=== PATIENT | male | born 1970 | race Caucasian/White ===

== ENCOUNTER 2022-08-22 14:30 | Outpatient (REF) | payer OTHER, SELFPAY ==
--- NOTE | ~2022-08-22 | US_ITS ---
EXAMINATION: US RETROPERITONEAL LIMITED (RENAL ONLY) CLINICAL INFORMATION: Polycystic kidney disease. COMPARISON: Ultrasound retroperitoneal limited (renal only) 07/14/2019. TECHNIQUE: Real-time imaging of the kidneys. FINDINGS: RIGHT KIDNEY: 15.8 x 7.3 x 7.5 cm (SAG x AP x TRV). The kidney is enlarged and replaced with innumerable cysts consistent with autosomal dominant polycystic kidney disease. In addition to the innumerable cysts, there are multiple echogenic foci. The largest cyst is at the upper pole measuring 5.2 cm. The largest echogenic foci is also in the upper pole measuring 3 mm in size. No hydronephrosis. LEFT KIDNEY: 19.1 x 7.3 x 8.1 cm (SAG x AP x TRV). The kidney is enlarged and replaced with innumerable cysts consistent with autosomal dominant polycystic kidney disease. In addition to the innumerable cysts, there are multiple echogenic foci. The largest cyst is at the upper pole measuring 7.5 cm. The largest echogenic foci is also in the mid kidney measuring 3 mm in size. No hydronephrosis. US/US renal BI IMPRESSION: Enlarged kidneys replaced with innumerable cysts consistent with autosomal dominant polycystic kidney disease. Multiple renal calcifications.
== END 2022-08-22 14:31 | disposition home or self-care (01) ==
LOC: HO.HMGCX 14:30
PROVIDERS: Visit Provider Internal Medicine Hypertension Specialist
DX: Q61.9 Cystic kidney disease, unspecified (principal)
CPT/HCPCS: 76775

== ENCOUNTER 2023-08-04 15:43 | Outpatient (AMB) | payer MEDICAID, SELFPAY ==
--- NOTE | 2023-08-04 15:45 | HO.NEPHOV_ITS ---
HPI HPI Comments History of Present Illness Details 53-year-old man with polycystic kidney d emma is here for annual follow-up Overall he is doing well. No urinary symptoms. No polyuria. No hematuria. No UTI. He had vague right upper quadrant pain which she spontaneously resolved. [facility] Surgical History (Updated 08/04/23 @ 15:59 by Arin Doan MA) Hx of tonsillectomy Social History Alcohol intake: former Comment: OCC Patient Tobacco Use Status: Never used Tobacco Vital Signs 08/04/23 15:48 Height 5 ft 11 in Weight 159 lb BMI 22.2 BP 122/88 Blood Pressure Location Lt brachial Position Sitting Pulse 60 Pulse Source Pulse Oximeter Pulse Oximetry (%) 98 Oxygen Delivery Method Room Air Physical Exam Vital Signs: Last Vital Signs Pulse 60 08/04/23 15:48 BP 122/88 08/04/23 15:48 Pulse Ox 98 08/04/23 15:48 Oxygen Delivery Method Room Air 08/04/23 15:48 BMI result Body Mass Index 22.2 Const General: comfortable Nutritional Appearance: well nourished Orientation/consciousness: patient oriented x3 HEENT Head: No normal to inspection Mouth: moist mucous membranes Neck Neck: Yes supple and Yes no JVD Resp Auscultation: clear to auscultation bilaterally, no rales and rub present Cardio Jugular venous distension: no JVD Palpation: no palpable S3 and no palpable S4 Heart sounds: no rubs GI Palpation (GI): Soft to palpation and nontender Percussion: No Fluid wave present General: Yes no CVA tenderness Back/Spine/Pelvis Back: no CVA tenderness Skin General skin exam: no rashes or lesions noted Neuro General: patient oriented x3 Extrem General: Yes no pedal edema and No clubbing Assessment & Plan Assessment & Plan (1) PCK (polycystic kidney disease): Code(s): Q61.3 - Polycystic kidney, unspecified Plan Middle-aged man with autosomal dominant polycystic kidney disease. Renal function has been stable thus far. I will continue to monitor renal function periodically. Increase him to avoid nephrotoxic agents and stay on a low-salt diet. We discussed using tolvaptan in the past and he prefers to wait Obtain follow-up ultrasonogram of liver and kidneys. Orders: Orders Comprehensive Met. Panel 08/04/23 Q61.3 - Polycystic kidney, unspecified US abdomen complete 08/04/23 Q61.3 - Polycystic kidney, unspecified Coding Level of Care Code Est Pt Level 3 (62529) Diagnoses PCK (polycystic kidney disease) Q61.3 Results Reviewed Results Reviewed: Labs from [facility] was reviewed Nephrology Results: Renal US 08/22/22
[2023-08-04 15:48] VITALS: BP 122/88; PULSE 60; O2SAT 98; BMI 22.2
== END 2023-08-04 16:03 | disposition home or self-care (01) ==
PROVIDERS: PCP Internal Medicine; Visit Provider Internal Medicine Hypertension Specialist
DX: Q61.3 Polycystic kidney, unspecified (principal)
CPT/HCPCS: 99213

== ENCOUNTER → 2023-08-04 15:43 | Outpatient (BNVA) | payer MEDICAID, SELFPAY | PROVIDERS: PCP Internal Medicine; Visit Provider Internal Medicine Hypertension Specialist | DX: Q63.1 Lobulated, fused and horseshoe kidney (principal) | CPT/HCPCS: 99212 ==

== ENCOUNTER 2023-08-27 08:12 | Outpatient (REF) | payer MEDICAID, SELFPAY | END 2023-08-27 08:13 | disposition home or self-care (01) | LOC: HO.HMGCX 08:12 | PROVIDERS: PCP Internal Medicine; Visit Provider Internal Medicine Hypertension Specialist | DX: Q61.3 Polycystic kidney, unspecified (principal) | CPT/HCPCS: 76700 ==

== ENCOUNTER 2024-08-05 14:54 | Outpatient (AMB) | payer OTHER, SELFPAY ==
--- NOTE | 2024-08-05 15:01 | HO.NEPHOV_ITS ---
Vital Signs 08/05/24 15:02 Height 5 ft 11 in Weight 163 lb BMI 22.7 BP 110/80 Blood Pressure Location Lt brachial Position Sitting Pulse 60 Pulse Source Pulse Oximeter Pulse Oximetry (%) 97 Oxygen Delivery Method Room Air Intake Visit Reasons: 1 Year fu/ Conf [employer] Worker Required: No Accompanied by: Self / Same As Patient Allergies No Known Allergies Allergy (Verified 08/05/24 15:04) HPI Comments Details: 53-year-old man with polycystic kidney disease is here for annual follow-up Overall he is doing well. No urinary symptoms. No polyuria. No hematuria. No UTI. He had vague right upper quadrant pain which she spontaneously resolved. PFSH Surgical History Hx of tonsillectomy Social History Alcohol intake: former Comment: OCC Patient Tobacco Use Status: Never used Tobacco Physical Exam Vital Signs: Last Vital Signs Pulse 60 08/05/24 15:02 BP 110/80 08/05/24 15:02 Pulse Ox 97 08/05/24 15:02 Oxygen Delivery Method Room Air 08/05/24 15:02 BMI result Body Mass Index 22.7 Results Reviewed Nephrology Results: Renal US 08/22/22 Assessment & Plan Assessment & Plan (1) PCK (polycystic kidney disease): Code(s): Q61.3 - Polycystic kidney, unspecified Category: Medical Plan Middle-aged man with autosomal dominant polycystic kidney disease. Renal function has been stable thus far. I will continue to monitor renal function periodically. Increase him to avoid nephrotoxic agents and stay on a low-salt diet. We discussed using tolvaptan in the past and he prefers to wait He wants to do his own research and get back to me. Orders: Orders Basic Metabolic Panel 1 Year Q61.3 - Polycystic kidney, unspecified UA and rflx microscopic 1 Year Q61.3 - Polycystic kidney, unspecified Coding Level of Care Code Est Pt Level 4 (82298) Diagnoses PCK (polycystic kidney disease) Q61.3
[2024-08-05 15:02] VITALS: BP 110/80; PULSE 60; O2SAT 97; BMI 22.7
== END 2024-08-05 15:17 | disposition home or self-care (01) ==
PROVIDERS: PCP Internal Medicine; Visit Provider Internal Medicine Hypertension Specialist
DX: Q61.2 Polycystic kidney, adult type (principal)
CPT/HCPCS: 99214

== ENCOUNTER → 2024-08-05 14:54 | Outpatient (BNVA) | payer OTHER, SELFPAY | PROVIDERS: PCP Internal Medicine; Visit Provider Internal Medicine Hypertension Specialist | DX: Q61.3 Polycystic kidney, unspecified (principal) | CPT/HCPCS: 99212 ==

== ENCOUNTER 2025-08-04 09:05 | Outpatient (AMB) | payer OTHER, SELFPAY ==
[2025-08-04 09:29] VITALS: BP 120/80; PULSE 61; O2SAT 97; BMI 22.0
--- NOTE | 2025-08-04 09:29 | HO.NEPHOV ---
Vital Signs 08/04/25 09:29 Height 5 ft 11 in Weight 158 lb BMI 22.0 BP 120/80 Blood Pressure Location Lt brachial Position Sitting Pulse 61 Pulse Source Pulse Oximeter Pulse Oximetry (%) 97 Oxygen Delivery Method Room Air Intake Visit Reasons: PCK-Conf Contract[employer] Manager Required: No Accompanied by: Self / Same As Patient Allergies No Known Allergies Allergy (Verified 08/04/25 09:32) Medication List - Last Reconciled 08/04/25 by Jeremy Stein MD cetirizine 5 mg PO DAILY PRN clonazepam 0.5 mg PO BID PRN fluticasone propionate 110 mcg/actuation (Flovent HFA) 2 puffs inhalation BID losartan 50 mg PO DAILY losartan 25 mg PO DAILY omeprazole 40 mg PO DAILY HPI Comments Details: History of Present Illness The patient is a 55 year old male presenting for a routine follow-up for polycystic kidney disease. His kidney function is stable, with a recent creatinine of 0.76 mg/dL, which is slightly improved from last year. His last ultrasound was performed a year ago and showed large kidneys with cysts, which were stable. He is on losartan 50 mg daily. The patient also reports a history of slightly elevated cholesterol, which is being managed with diet and exercise as it was not high enough to warrant medication per his primary care physician. The patient reports experiencing a slow urinary stream and increased urinary frequency, particularly at night, which he attributes to his age. He denies any hematuria, kidney stones, or urinary tract infections. He also mentions intermittent abdominal bloating and a sensation of pressure under his rib cage, which comes and goes. Results - Labs: Recent bloodwork showed a creatinine of 0.76 mg/dL. Urinalysis was clear with no hematuria or proteinuria. Electrolytes were normal. - Imaging: An ultrasound performed last year showed large kidneys with cysts, which were stable. [facility] Surgical History Hx of tonsillectomy Social History Alcohol intake: former Comment: [facility] Patient Tobacco Use Status: Never used Tobacco Physical Exam Exam Exam: Physical Exam General: Awake. Comfortable. HENT: Neck supple. Mucosa moist. Pulmonary: Lungs aeration equal. No rales. Cardiology: Heart S1-S2 heard. No gallop. Abdomen: Soft. Non tender. Bowel sounds normal. Neurologic: No involuntary movements. No myoclonus. Extremities: No edema. No rash. Vital Signs: Last Vital Signs Pulse 61 08/04/25 09:29 BP 120/80 08/04/25 09:29 Pulse Ox 97 08/04/25 09:29 Oxygen Delivery Method Room Air 08/04/25 09:29 BMI result Body Mass Index 22.0 Results Reviewed Nephrology Results: Renal US 08/22/22 Assessment & Plan Assessment & Plan (1) PCK (polycystic kidney disease): Code(s): Q61.3 - Polycystic kidney, unspecified Category: Medical Plan Plan 1. Autosomal Dominant Polycystic Kidney Disease - The patient's kidney function is stable with a creatinine of 0.76 mg/dL, and his kidneys have not shown rapid enlargement. - Tolvaptan is not indicated at this time, and the patient has declined this medication due to concerns about side effects. - A follow-up kidney ultrasound is planned for 2025, which will be two years after his last one. - Will continue to monitor and follow up in one year. - The patient was advised to call if he experiences any new problems, such as hematuria. 2. Blood PRessure - The patient's blood pressure is well-controlled at 120/80 mmHg. - He will continue taking losartan 50 mg daily, which also provides renoprotective benefits for his polycystic kidney disease. 3. Lower Urinary Tract Symptoms - The patient's symptoms of a slow stream and nocturia are noted and are likely age-related. - No active intervention is planned at this time. The patient was advised to report any hematuria or other concerning urinary symptoms. - He was advised to report if the pain becomes more frequent or severe, at which point an ultrasound could be arranged sooner. Orders: Orders Creatinine Urine Today Q61.3 - Polycystic kidney, unspecified Total Protein Urine Random Today Q61.3 - Polycystic kidney, unspecified Basic Metabolic Panel 1 Year Q61.3 - Polycystic kidney, unspecified UA and rflx microscopic Today Q61.3 - Polycystic kidney, unspecified US renal BI 1 Year Q61.3 - Polycystic kidney, unspecified Coding Level of Care Code Est Pt Level 4 (94679) Diagnoses PCK (polycystic kidney disease) Q61.3
== END 2025-08-04 09:48 | disposition home or self-care (01) ==
LOC: HO.HKA 09:06
PROVIDERS: PCP Internal Medicine; Visit Provider Internal Medicine Hypertension Specialist
DX: Q61.3 Polycystic kidney, unspecified (principal)
CPT/HCPCS: 99214